=== PATIENT | female | born 1950 | race Caucasian/White ===

== ENCOUNTER 2023-08-10 09:44 | Emergency (ER) | payer BC, SELFPAY ==
[2023-08-10 09:52] VITALS: BP 162/81
[2023-08-10 10:28] LABS: % Basophils 0.3 % (0-2); % Eosinophils 0.1 % (0-6); % Immature Granulocytes 0.4 % (0-0.5); % Lymphocytes 5.1 % (20.5-51.1); % Monocytes 1.8 % (1.7-9.3); % Neutrophils 92.3 % (42.2-75.2); Absolute Immature Granulocytes 0.1 10^3/uL (0-0.05); Absolute Lymphocytes 0.6 10^3/uL (1.2-3.4); Absolute Monocytes 0.2 10^3/uL (0.1-0.6); Hematocrit 37.2 % (37.0-47.0); Hemoglobin 13.1 g/dL (12.0-16.0); Mean Corp Hgb Conc. 35.2 g/dL (33.0-37.0); Mean Corpuscular Hgb 30.9 pg (27.0-31.0); Mean Corpuscular Volume 87.7 fL (81.0-99.0); Nucleated Red Blood Cells % 0 %; Platelet Count 186 10^3/uL (130-400); Red Blood Cell Count 4.24 10^6/uL (4.20-5.40); Red Cell Dist. Width 12.3 % (11.5-14.5)
[2023-08-10 10:39] LABS: ALT (SGPT) 16 U/L (0-35); AST (SGOT) 22 U/L (14-36); Albumin 4.2 g/dl (3.5-5.0); Alkaline Phosphatase 72 U/L (38-126); Blood Urea Nitrogen 20 mg/dl (7-17); Calcium 9.8 mg/dl (8.4-10.2); Chloride 99 mmol/L (98-107); Glucose 159 mg/dl (70-99); Potassium 4.4 mmol/L (3.5-5.1); Sodium 137 mmol/L (135-145); Total Bilirubin 0.8 mg/dl (0.2-1.3); Total Protein 7.1 g/dl (6.3-8.2)
[2023-08-10 10:41] LABS: Carbon Dioxide 27 mmol/L (22-30)
[2023-08-10 11:13] VITALS: BP 135/86
--- NOTE | 2023-08-10 11:19 | ED.GENMED ---
History of Present Illness
General
Chief Complaint: Abdominal Symptoms
Source: patient
Exam Limitations: none
Time Seen by Provider: 08/10/23 10:56
Nursing documentation reviewed up to this point in time: agreed with
Travel History
Have you had any contact with someone who has COVID-19?: No
Do you have any symptoms of coronavirus? Fever > 100 degrees, chills, cough, shortness of breath, sore throat, loss of taste or smell, muscle aches, or headache?: No
History of Present Illness
History of Present Illness:
PT IS A 73 Y/O F h/o hld, former breast CA, epigastric hernia in the past
here with LLQ abd pain that started around 2 am which was feeling like a severe 8/10 pain with nausea and 3 episodes of vomiting nonbilious nonbloody emesis
she felt the urge to defecate but was unable to
she said the pain was fairly intense for hours before mostly resolving; she feels much better now
no fever chills, dysuria, frequency, hematuria, diarrhea, bloody or black stool, cp, sob.
pt has never had kidney stone
no meds taken for pain.
Past History
Past History
ED Past Medical History: Cancer (breast) and Hypercholesterolemia
ED Past Surgical History: Orthopedic and Other (breast lumpectomy)
Review of Systems
Review of Systems
Allergies reviewed?: Yes
All Other Systems: Not applicable
Phy Exam
Physical Exam
Physical Exam:
GENERAL: Alert , in no apparent distress
EYE: pupils equal and reactive
NECK: Supple
ENT: o/p clr, mmm.
CARDIAC: Regular rate and rhythm .
LUNGS: Clear breath sounds bilaterally, no acute respiratory distress, no wheezes/rales/rhonchi
ABDOMEN: Soft, mild left lower quad tendenress, no r/g, no cvat, normal bowel sounds
NEUROLOGICAL: Alert and oriented, no focal neuro deficits
SKIN: Warm and dry, skin intact.
MUSCULOSKELETAL: No edema, well perfused.
PSYCH: Normal and appropriate interaction.
Course
Orders/Labs/Results
Orders:
Orders
08/10/23 10:09
Complete Blood Count/With Diff Urgent
Comprehensive Metabolic Panel Urgent
Lipase Urgent
Comment: ADD ON
08/10/23 11:18
CT Abd/Pel (IV only)-DH only Urgent
Comment:
Reason For Exam: LLQ PAIN, VOMITING, EVAL DIVERTIC
0.9% Sodium Chloride 1000 ml [Nss] 1,000 ml IV BOLUS
08/10/23 13:12
Urinalysis Reflex To Culture Urgent
Date Specimen was Collected: 08/10/23
Time Specimen was Collected: 13:00
Urine Microscopic Reflex Cult Urgent
08/10/23 13:15
Add On- LAB Urgent
Tests Added?: lipase
08/10/23 13:59
Amoxicillin 875 mg/Clav 125 mg [Augmentin 875 mg/125 mg] 1 tablet PO NOW STA
Abnormal Lab Results
08/10/23 08/10/23
10:09 13:12
WBC 12.0 H 10^3/uL
(4.8-10.8)
Abs Immat Gran (auto) 0.1 H 10^3/uL
(0-0.05)
Absolute Neuts (auto) 11.0 H 10^3/uL
(1.4-6.5)
Absolute Lymphs (auto) 0.6 L 10^3/uL
(1.2-3.4)
Neutrophils % 92.3 H %
(42.2-75.2)
Lymphocytes % 5.1 L %
(20.5-51.1)
BUN 20 H mg/dl
(7-17)
Creatinine 1.1 H mg/dL
(0.6-1.0)
Glucose 159 H mg/dl
(70-99)
Ur Occult Blood Reflex 3+ A
(Negative)
Urine RBC 7-10 A /HPF
(0-2)
Urine Bacteria (Reflex) Few A
(Negative)
08/10/23 10:09
08/10/23 10:09
Vital Signs
Initial and Last Documented VS:
Initial Vital Signs
Temp Pulse Resp BP Pulse Ox
97.9 F 70 20 162/81 98
08/10/23 09:52 08/10/23 09:52 08/10/23 09:52 08/10/23 09:52 08/10/23 09:52
Last Documented Vital Signs
Temp Pulse Resp BP Pulse Ox
99.1 F 83 12 140/72 95
08/10/23 15:41 08/10/23 15:41 08/10/23 15:41 08/10/23 15:41 08/10/23 15:41
MDM/Problems Addressed
Differential Diagnosis Includes:
Kidney stone, diverticulitis, gas pain, colitis
MDM/Problems Addressed:
73-year-old female with a history of diverticulosis on colonoscopy previously had a onset of left lower quadrant pain/left flank pain at 2 AM which is pretty severe, 8 out of 10. Patient says she went to the bathroom and urinated normally, she felt
like she could have had a bowel movement but did not. She ultimately vomited 3 times. Patient says her pain would come in waves. It did get much better this morning but is still very mildly present at 3 out of 10. It does not radiate to her
back. She has never had a kidney stone. Patient denies any diarrhea, bloody stool, fevers or chills.
On exam the patient is minimally tender in her left lower quadrant. Given her history of diverticulosis I opted to scan her. Her urine was not resulted prior to her CAT scan. But it did result with microscopic hematuria, there are casts in the
urine. Patient's CT shows a subtle inflammation that could be diverticulitis however she also has mild fullness of her renal collecting system and I wonder if maybe the patient passed a kidney stone. She became pain-free without medications here
and feels very well, was able to tolerate p.o. fluids. Given the inflammation in the CAT scan I will cover her with Augmentin but I do suspect this was a kidney stone. She should follow-up with her family doctor and have a urinalysis to make sure
that the hematuria resolves
*Critical Care Note
Total Time (30-74mins, 75-104mins- exclusive of procedures): Not Applicable
ED Attending Note
-
Portions of this chart may have been created with voice recognition software.� Occasional wrong word or��sound alike� substitutions may have occurred due to the inherent limitations of voice recognition software.
Discharge Plan
Departure
Patient Disposition: Home (Routine Discharge)
Date of Disposition: 08/10/23
Time of Disposition: 14:50
Patient with high blood pressure during this ER visit?: No
Condition: Fair
Covid-19: Not Applicable
Discharge Problem:
Diverticulitis, Hematuria, microscopic
Instructions: Diverticulitis (DC), Nausea and Vomiting, Adult (DC), Blood in the Urine (Hematuria), Adult (DC)
Prescriptions:
New
amoxicillin-pot clavulanate 875-125 mg tablet
1 tab PO BID Qty: 20 0RF
No Action
fluoxetine [Prozac] 40 MG capsule
40 mg PO DAILY
alprazolam 0.25 MG tablet
0.25 mg PO PRN PRN (Reason: anxiety)
simvastatin 20 MG tablet
20 mg PO .DINNERTIME
gabapentin 300 MG capsule
2 - 3 tab PO DAILY
cholecalciferol (vitamin D3) [Vitamin D3] 400 UNITS tablet
2,000 units PO BID
Diclofenac Sodium ER
50 mg PO BID
Ferrous Sulfate
65 mg PO BID
[place] - 3
1,200 mg PO BID
sennosides [senna] 1 TABLET tablet
2 tab PO BID 0RF
acetaminophen 325 MG tablet
650 mg PO Q4HPRN PRN (Reason: for mild pain or fever >100.4F) 0RF
prednisone 10 MG tablet
10 mg PO DAILY Qty: 1 0RF
Rx Instructions:
take 04/12
miconazole nitrate [Miconazorb AF] 1 APPLIC powder
0 applic topical BID 0RF
magnesium hydroxide 30 ML suspension
30 ml PO DAILYPRN PRN (Reason: constipation) 0RF
aspirin 325 MG tablet,delayed release (DR/EC)
325 mg PO DAILY 0RF
docusate sodium 100 MG capsule
100 mg PO BID 0RF
alum-mag hydroxide-simeth [Mag-Al Plus] 30 ML suspension
30 ml PO Q4HPRN PRN (Reason: INDIGESTION) 0RF
oxycodone 5 MG tablet
1 - 2 tab PO Q4HPRN PRN (Reason: pain) Qty: 90 0RF
Referrals:
Carissa Jaquez MD [Family Provider] - Follow up in 2-3 days
Activity Restrictions/Additional Instructions:
Your CAT scan shows some inflammation suggesting diverticulitis. It is very subtle and mild in nature. Try clear liquids for 24 hours and advance as tolerated to bland foods. Take Augmentin twice a day for 7 to 10 days. Follow-up with your
family doctor. Take Tylenol or ibuprofen for pain. Have a low threshold for returning, if your pain worsens, fevers or chills, vomiting repeatedly, diarrhea or bloody stools please return immediately. Otherwise you can follow-up with your family
doctor, they may return for you to a GI doctor as well.
IT IS ALSO POSSIBLE THAT YOU COULD HAVE PASSED A KIDNEY STONE
YOU HAD BLOOD IN YOUR URINE BUT NO STONE VISUALIZED
MAKE SURE TO SEE YOUR DOCTOR TO BE SURE THE BLOOD IN THE URINE CLEARS UP.
Interventions
Interventions:
*Risk Screen - Suicide Last Done: 08/10/23 11:26
*General Assessment Last Done: 08/10/23 11:26
*Neglect/Abuse Screening Last Done: 08/10/23 11:26
ED- Fall Risk Assessment Last Done: 08/10/23 11:27
*ED COVID-19 Vaccine History Last Done: 08/10/23 11:26
*Nursing Disposition Last Done: 08/10/23 15:41
AM-Jfxggq-Rljtsmypnt Assessment Last Done: 08/10/23 11:27
Discharge Date and Time
Discharge Date/Time: 08/10/23 15:41
[2023-08-10 11:24] VITALS: BP 124/76
[2023-08-10] MEDS: NSS 1000 IV (11:24)
[2023-08-10 11:25] VITALS: BMI 30.8
[2023-08-10 12:00] VITALS: BP 138/61
[2023-08-10 13:00] VITALS: BP 127/67
[2023-08-10 13:47] LABS: Lipase 52 U/L (23-300)
[2023-08-10 13:56] LABS: Urine Albumin Negative (Neg - Trace); Urine Bilirubin Negative (Negative); Urine Character Clear (Clear); Urine Color Yellow; Urine Glucose Negative (Negative); Urine Ketone Negative (Negative); Urine Leukocyte Negative (Negative); Urine Nitrite Negative (Negative); Urine Occult Blood 3+ (Negative); Urine Specific Gravity 1.015 (<1.030); Urine Urobilinogen Negative (Neg - 1+)
[2023-08-10 14:48] LABS: Urine Amorphous Seen; Urine Mucus Few; Urine Squamous Cell 0-2 /LPF (Few)
[2023-08-10 14:49] LABS: Urine Bacteria Few (Negative); Urine White Cell 0-2 /HPF (0-5)
[2023-08-10] MEDS: AUGMENTIN 875 MG/125 MG 1 TABLET PO (14:52)
[2023-08-10 15:41] VITALS: BP 140/72
== END 2023-08-10 15:41 | disposition home or self-care (01) ==
LOC: EMR 09:44
PROVIDERS: Physician Assistant; EMERGENCY PHYSICIAN Emergency Medicine; FAMILY PHYSICIAN Family Medicine
DX: K57.92 Diverticulitis of intestine, part unspecified, without perforation or abscess without bleeding (principal); R31.29 Other microscopic hematuria; E78.00 Pure hypercholesterolemia, unspecified; Z85.3 Personal history of malignant neoplasm of breast
CPT/HCPCS: 99284; 96360; 74177; 80053; 81003; 81015; 83690; 85025; Q9967

== ENCOUNTER → 2023-08-26 12:07 | Outpatient (REF) | payer BC, SELFPAY | LOC: HWRAD 12:07 | PROVIDERS: ATTENDING PHYSICIAN Family Medicine | DX: M81.0 Age-related osteoporosis without current pathological fracture (principal) | CPT/HCPCS: 77080 ==

== ENCOUNTER → 2024-01-19 15:15 | Outpatient (REF) | payer BC, SELFPAY | LOC: HWWDC 15:15 | PROVIDERS: ATTENDING PHYSICIAN Family Medicine | DX: Z12.31 Encounter for screening mammogram for malignant neoplasm of breast (principal) | CPT/HCPCS: 77063; 77067 ==

== ENCOUNTER → 2025-02-22 13:52 | Outpatient (REF) | payer BC, SELFPAY | LOC: HWWDC 13:52 | PROVIDERS: ATTENDING PHYSICIAN Family Medicine | DX: Z12.31 Encounter for screening mammogram for malignant neoplasm of breast (principal) | CPT/HCPCS: 77063; 77067 ==